=== PATIENT | male | born 1945 | race Caucasian/White ===

== ENCOUNTER 2021-01-17 12:53 | Emergency (ER) | payer MEDICARE, OTHER ==
[2021-01-17 15:25] LABS: HGB 11.7 g/dl (13.2-18.0); MCH 34.6 pg (25.0-31.0); MCHC 33.4 g/dL (32.0-36.0); MCV 103.6 fL (78.0-100.0); MPV 12.7 fL (6.0-9.5); RBC 3.38 M/uL (4.70-6.00); RDW 17.2 % (11.5-14.0); WBC 6.2 K/uL (4.0-10.5)
[2021-01-17 15:27] LABS: BUN/CREAT RATIO (CALC) 17.1 RATIO; CREATININE 1.05 mg/dL (0.67-1.17); POTASSIUM 4.3 mmol/L (3.5-5.1)
[2021-01-17 16:49] LABS: BILIRUBIN NEGATIVE (NEGATIVE); BLOOD NEGATIVE Ery/uL (NEGATIVE); CLARITY CLEAR (CLEAR); COLOR YELLOW (YELLOW); GLUCOSE (U) NORMAL (NORMAL); LEUKOCYTES NEGATIVE Leu/uL (NEGATIVE); NITRITE NEGATIVE (NEGATIVE); PROTEIN NEGATIVE (NEGATIVE); SPECIFIC GRAVITY >=1.030 (1.001-1.030); pH 5.5 (5.0-9.0)
[2021-01-17] MEDS ORDERED: NORCO 5-325 TA1 EACH PO (18:36)
== END 2021-01-17 19:24 | disposition home or self-care (01) ==
LOC: FER 12:53
PROVIDERS: Nurse Practitioner Family
DX: S92.351A Displaced fracture of fifth metatarsal bone, right foot, initial encounter for closed fracture (principal); S50.01XA Contusion of right elbow, initial encounter; S60.222A Contusion of left hand, initial encounter; S60.221A Contusion of right hand, initial encounter; I95.9 Hypotension, unspecified; I51.9 Heart disease, unspecified; I10 Essential (primary) hypertension; Z87.891 Personal history of nicotine dependence; Z95.810 Presence of automatic (implantable) cardiac defibrillator; W18.30XA Fall on same level, unspecified, initial encounter; X50.1XXA Overexertion from prolonged static or awkward postures, initial encounter; Y92.009 Unspecified place in unspecified non-institutional (private) residence as the place of occurrence of the external cause
CPT/HCPCS: 36415; 73090; 73130; 73610; 73630; 80048; 81003; 93005; J7030